=== PATIENT | male | born 1955 | race Caucasian/White ===

== ENCOUNTER 2023-10-08 13:42 | Inpatient (IN) | payer MEDICARE, OTHER, SELFPAY ==
[2023-10-08] VITALS (7 sets, daily range): BP systolic 128–169; BP diastolic 72–96; BMI 42.5
--- NOTE | 2023-10-08 07:15 | ED.GENMED ---
History of Present Illness
General
Chief Complaint: Flank Pain
Time Seen by Provider: 10/08/23 07:05
Travel History
Have you had any contact with someone who has COVID-19?: No
Do you have any symptoms of coronavirus? Fever > 100 degrees, chills, cough, shortness of breath, sore throat, loss of taste or smell, muscle aches, or headache?: No
History of Present Illness
History of Present Illness:
68-year-old male with history of morbid obesity, A-fib, hypertension, hyperlipidemia, coronary artery disease status post REED x 2 (placed at [facility] earlier this year) and chronic anticoagulant use presents to the emergency
department for evaluation of right flank pain beginning 2 hours prior to arrival. Feels comparable to prior kidney stones. Has required urologic intervention in the past for stones. Pain radiates toward the anterior abdomen associated with
nausea, no vomiting. Denies any hematuria or urinary discomfort. No history of intra-abdominal surgery. After his recent cardiac intervention he is currently on warfarin and Plavix.
Past History
Past History
ED Past Medical History: Arrthythmia (A. fib), HTN, Hypercholesterolemia, NIDDM, Psychiatric (Depression) and Other (Obstructive sleep apnea)
ED Past Surgical History: Cardiac (Cardiac ablation)
Social History
Tobacco: Non-smoker
Alcohol: Occasional
Drug: None
Personal:
Living: with family
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
Family History
Family History: Other (Noncontributory)
Review of Systems
Review of Systems
Allergies reviewed?: Yes
All Other Systems: ROS reviewed and negative except as documented in HPI and ROS
Phy Exam
Physical Exam
Physical Exam:
GEN: Appears uncomfortable, nontoxic
HEENT: Oral mucosa moist, no scleral icterus
Cardiac: Regular rate
Lung: No respiratory distress, no tachypnea
Abdomen: Morbid obesity limits exam, no CVA tenderness bilaterally, no anterior abdominal tenderness, no rigidity
MSK: No gross deformity or injuries
Skin: Good color, no pallor or jaundice, no rashes
Neuro: AO x3, moves all extremities freely
Psych: Calm, cooperative
Course
Orders/Labs/Results
Orders:
Orders
10/08/23 07:14
0.9% Sodium Chloride 1000 ml [Nss] 1,000 ml IV BOLUS
HYDROmorphone [Dilaudid] 0.5 mg IV NOW STA
Ondansetron Injectable [Zofran] 4 mg IV NOW STA
10/08/23 07:15
CT Abd/pel Without Iv Or Oral Urgent
Comment: no prior abd surgery
Reason For Exam: R flank pain
10/08/23 07:32
Basic Metabolic Panel Urgent
Complete Blood Count/With Diff Urgent
Prothrombin Time Urgent
10/08/23 08:54
HYDROmorphone [Dilaudid] 0.5 mg IV NOW STA
Ketorolac [Toradol] 15 mg IV NOW STA
10/08/23 09:10
Urinalysis Reflex To Culture Urgent
Date Specimen was Collected: 10/08/23
Time Specimen was Collected: 09:09
Urine Microscopic Reflex Cult Urgent
Urine Culture Urgent
LEVON Source: U
Specimen Description:
Date Specimen was Collected: 10/08/23
Time Specimen was Collected: 09:09
10/08/23 13:20
Admit/Transfer Patient As Directed
Co-Sign Provider:
Level of Care: Inpatient admission
Assign to:: Telemetry
Physician / Group: [email or web address]/medicine
Transfer to: Telemetry
Diagnosis: Nephrolithiasis, hydronephrosis
Reason for Telemetry: Arrhythmia
Date to Stop Telemetry: 10/11/23
Time to Stop Telemetry: 11:00
Reason for Hospitalization: Nephrolithiasis, hydronephrosis
Expected length of stay greater than two midnights?: Yes
ELOS- Estimated Length of Stay in days: 3
I certify the patient meets the requirements for IP care: Yes
Strain Urine As Directed
If stone obtained- send for analysis: Yes
Comment: notify MD if stone is recovered
10/08/23 13:25
Code Status As Directed
Resuscitation Status: Full Code
10/09/23 13:18
Tamsulosin [Flomax] 0.4 mg PO DAILY
10/11/23 11:00
DC Protocol for Telemetry ONCE
Abnormal Lab Results
10/08/23 10/08/23
07:32 09:10
RBC 4.66 L 10^6/uL
(4.70-6.10)
MCH 31.1 H pg
(27.0-31.0)
MPV 10.9 H fL
(7.4-10.4)
Absolute Neuts (auto) 7.0 H 10^3/uL
(1.4-6.5)
Absolute Lymphs (auto) 1.0 L 10^3/uL
(1.2-3.4)
Neutrophils % 80.7 H %
(42.2-75.2)
Lymphocytes % 11.5 L %
(20.5-51.1)
PT 18.8 H Sec
(11.4-14.6)
Carbon Dioxide 19 L mmol/L
(22-30)
BUN 30 H mg/dl
(9-20)
Creatinine 1.4 H mg/dL
(0.7-1.3)
Glucose 249 H mg/dl
(70-99)
Urine Ketones 2+ A
(Negative)
Ur Occult Blood Reflex 4+ A
(Negative)
Urine RBC 70-80 A /HPF
(0-2)
Urine Bacteria (Reflex) Moderate A
(Negative)
Urine Glucose 3+ A
(Negative)
Urine Albumin (Reflex) 1+ A
(Neg - Trace)
10/08/23 07:32
10/08/23 07:32
Vital Signs
Initial and Last Documented VS:
Initial Vital Signs
Pulse Resp BP Pulse Ox
70 16 140/96 98
10/08/23 06:59 10/08/23 06:59 10/08/23 06:59 10/08/23 06:59
Last Documented Vital Signs
Temp Pulse Resp BP Pulse Ox
98.6 F 57 16 128/80 94
10/08/23 08:38 10/08/23 11:46 10/08/23 11:46 10/08/23 11:46 10/08/23 11:46
MDM/Problems Addressed
MDM/Problems Addressed:
60-year-old male presents with right flank pain. He is found to have a 3 to 4 mm distal right ureteral stone. Given that he is anticoagulated and on antiplatelets chronically he is not suitable for discharge home on NSAIDs. Unfortunately NSAIDs
were the only medication emergency department provided sustained pain relief. Will admit to the hospitalist service for pain control, urology consulted for potential intervention if stone does not pass spontaneously
*Critical Care Note
Total Time (30-74mins, 75-104mins- exclusive of procedures): Not Applicable
ED Attending Note
-
Portions of this chart may have been created with voice recognition software.� Occasional wrong word or��sound alike� substitutions may have occurred due to the inherent limitations of voice recognition software.
Discharge Plan
Departure
Patient Disposition: Admit
Date of Disposition: 10/08/23
Time of Disposition: 09:56
Admit to: Med/Surg
Presentation/result/management discussed w/ accepting MD/DO: Hospitalist
Discharge Problem:
Hydronephrosis with urinary obstruction due to ureteral calculus
Interventions
Interventions:
*Risk Screen - Suicide Last Done: 10/08/23 09:28
*General Assessment Last Done: 10/08/23 09:27
*Neglect/Abuse Screening Last Done: 10/08/23 09:27
ED- Fall Risk Assessment Last Done: 10/08/23 09:28
*ED COVID-19 Vaccine History Last Done: 10/08/23 09:27
BR-Bbyzll-Wvxgckojcd Assessment Last Done: 10/08/23 09:00
ED-Male Genitourinary Assessment Last Done: 10/08/23 09:00
[2023-10-08] MEDS: ZOFRAN 4 MG IV (07:44)
[2023-10-08] MEDS: NSS 1000 IV (07:44)
[2023-10-08] MEDS: DILAUDID 0.5 MG IV ×4 (07:45→17:31)
[2023-10-08 07:57] LABS: % Basophils 0.2 % (0-2); % Eosinophils 0.6 % (0-6); % Immature Granulocytes 0.2 % (0-0.5); % Lymphocytes 11.5 % (20.5-51.1); % Monocytes 6.8 % (1.7-9.3); % Neutrophils 80.7 % (42.2-75.2); Absolute Eosinophils 0.1 10^3/uL (0-0.7); Absolute Monocytes 0.6 10^3/uL (0.1-0.6); Hematocrit 41.4 % (39.0-52.0); Hemoglobin 14.5 g/dL (13.0-18.0); Mean Corpuscular Hgb 31.1 pg (27.0-31.0); Mean Corpuscular Volume 88.8 fL (80.0-94.0); Mean Platelet Volume 10.9 fL (7.4-10.4); Nucleated Red Blood Cells % 0 % (-); Platelet Count 143 10^3/uL (130-400); Red Blood Cell Count 4.66 10^6/uL (4.70-6.10); Red Cell Dist. Width 13.1 % (11.5-14.5); White Blood Cell Count 8.6 10^3/uL (4.8-10.8)
[2023-10-08 08:07] LABS: INR 1.59; PT 18.8 Sec (11.4-14.6)
[2023-10-08 08:17] LABS: Blood Urea Nitrogen 30 mg/dl (9-20); Calcium 9.7 mg/dl (8.4-10.2); Carbon Dioxide 19 mmol/L (22-30); Chloride 106 mmol/L (98-107); Estimated Creatinine Clearance 76 ml/min; Glucose 249 mg/dl (70-99); Sodium 136 mmol/L (135-145); eGFR 54.75
[2023-10-08] MEDS: TORADOL 15 MG IV (09:20)
[2023-10-08 09:29] LABS: Urine Albumin 1+ (Neg - Trace); Urine Bilirubin Negative (Negative); Urine Character Slightly Cloudy (Clear); Urine Color Amber; Urine Glucose 3+ (Negative); Urine Ketone 2+ (Negative); Urine Leukocyte Negative (Negative); Urine Nitrite Negative (Negative); Urine Occult Blood 4+ (Negative); Urine Specific Gravity 1.015 (<1.030); Urine Urobilinogen Negative (Neg - 1+)
[2023-10-08 09:36] LABS: Urine Bacteria Moderate (Negative); Urine Red Blood Cell 70-80 /HPF (0-2)
--- NOTE | 2023-10-08 13:10 | W.PN.URO.CBU ---
Today's Communication / Plan
-
Trial of stone passage
OK to eat
OR 10/10/23 if stone does not pass
Discussed with Hospitalist
Assessment / Plan
-
Right renal colic
3 mm partially obstructing right UVJ stone
---
Will be admitted to Hospitalist service
Trial of stone passage
Antiplatelet medications to be held
Diagnosis
-
Date of Service: October 08, 2023
-
Patient Diagnosis:
CaOx and uric acid nephrolithiasis
History BPH s/p TURP and cystolithalopaxy 11/13
He is s/p left ureteroscopy with stone manipulation 05/15 and 06/15
---
He was awakened from sleep this AM with crushing right flank pain
CT scan reveals a 3 mm right UVJ stone with associated right hydroureteronephrosis. Non-obstructing left renal stones are present (images personally reviewed and results shared with patient and )
Subjective
-
c/o ongoing right CVAT
No right lower quadrant discomfort
Objective
-
Vital Signs
Temp Pulse Resp BP Pulse Ox
98.6 F 57 16 128/80 94
10/08/23 08:38 10/08/23 11:46 10/08/23 11:46 10/08/23 11:46 10/08/23 11:46
Laboratory Results
10/08/23 07:32
10/08/23 07:32
Review of Systems
-
Constitutional: No Symptoms
Respiratory: No Symptoms
Cardiac: No Symptoms
Abdomen/GI: Abdominal Pain
: Bleeding
Neurological: No Symptoms
Physical Exam
-
General -well nourished, no acute distress
Abdomen - soft, non-tender in SP region, right CVAT
Genitalia - normal
Skin - warm & dry with no rash
Neuro - AOx3, no motor deficits
--- NOTE | 2023-10-08 15:26 | HPS.HSE ---
Addendum entered and electronically signed by Archie Martinez MD 10/08/23 16:23:
Patient states may not be on Plavix any longer due to cost, requested family to bring in medication list updated reconciliation
Original Note:
Family Physician
-
Family Physician: Vince Mahmood
Chief Complaint
-
Right flank pain
History of Present Illness
68-year-old male with history of morbid obesity, A-fib on coumadin, hypertension, hyperlipidemia, VIC, coronary artery disease status post REED x 2 on DAPT(placed at [facility] earlier this year) now presents for right flank pain that
began 2 hours prior to hospital arrival. Has a history of prior kidney stones and symptoms are similar to those events. Patient describes pain is radiating down to the anterior abdomen. Pain is associated with nausea and vomiting, no hematuria
noted.
Medical History
Past Medical History
Past Medical History: Reports Other
Additional Past Medical History:
ASCVD
Hypertension
DM-II
Non-Sustained VT
SSS / Symptomatic Bradycardia
Atrial Fibrillation
Obesity
VIC
Nephrolithiasis
BPH
Anxiety / Depression
Past Surgical History: Reports Other
Additional Past Surgical History:
PTCA wth Stent (January 2022)
PPM Placement
TURP / Bladder Stone Removal
Social History
Tobacco: Non-smoker
Alcohol: Occasional
Drug: None
Family History
Family History: Not pertinent
Allergies / Home Medications
Allergies reflects when Allergies were last updated in [employer].
Home Medications with original date entered in [employer]
Allergy/Medication List:
Allergies
Allergy/AdvReac Type Severity Reaction Status Date / Time
No Known Allergies Allergy Verified 10/08/23 07:01
Home Medications
B-complex with vitamin C 1 cap PO HS Supplement 02/26/21
amlodipine 10 mg tablet 10 mg PO QPM Blood pressure 02/26/21
atorvastatin 80 mg tablet 80 mg PO DAILY High cholesterol 02/26/21
magnesium oxide 500 mg PO QPM Electrolyte Repletion 02/26/21
metoprolol succinate 25 mg tablet,extended release 24 hr 25 mg PO DAILY Heart disease/condition 02/26/21
paroxetine HCl 20 mg tablet 20 mg PO DAILY Mental Health/Anxiety 02/26/21
vitamin E (dl, acetate) 180 mg (400 unit) capsule 400 units PO DAILY Supplement 02/26/21
lisinopril 40 mg tablet 40 mg PO DAILY Blood Pressure 09/23/22
metformin 500 mg tablet 500 mg PO BID Diabetes 05/13/23
warfarin 2.5 mg tablet (Jantoven) 7.5 mg PO MOWEFR@0800 atrial fibrillation/stroke prevention 05/13/23
warfarin 5 mg tablet (Jantoven) 5 mg PO DAILY atrial fibrillation/stroke prevention 05/13/23
Fish Oil 400 mg PO QPM 10/08/23
aspirin 81 mg tablet,delayed release 81 mg PO DAILY 10/08/23
cholecalciferol (vitamin D3) 25 mcg (1,000 unit) tablet 25 mcg PO DAILY 10/08/23
clopidogrel 75 mg tablet 75 mg PO DAILY 10/08/23
glucosamine sulfate 500 mg tablet (Glucosamine) 1,500 mg PO DAILY 10/08/23
therapeutic multivitamin 1 tab PO QPM 10/08/23
Review of Systems
-
History Source: Patient
A 12 point ROS was completed and negative except as noted: Yes
Physical Exam
Vital Signs
Vital Signs
Temp Pulse Resp BP Pulse Ox
97.4 F 64 18 159/75 98
10/08/23 15:18 10/08/23 15:18 10/08/23 15:18 10/08/23 15:18 10/08/23 15:18
Physical Exam
General: Well Developed, Well Nourished and No Apparent Distress
HEENT: NormoCephalic
Respiratory: Clear
Cardiac: S1/S2
GI: Non Tender and Other (Obese, Positive BS)
Musculoskeletal: No Clubbing
Skin: Warm, Dry and Rash
Neuro: Awake, Alert, Oriented and AO x 3
Hematologic/Lymphatic: No Lymphadenopathy
Psych: Calm
Laboratory Results
-
10/08/23 07:32
10/08/23 07:32
Laboratory Results
PT 18.8 Sec (11.4-14.6) H 10/08/23 07:32
INR 1.59 10/08/23 07:32
Total Bilirubin Cancelled 10/08/23 07:32
AST Cancelled 10/08/23 07:32
ALT Cancelled 10/08/23 07:32
Alkaline Phosphatase Cancelled 10/08/23 07:32
Data Reviewed
-
CT Scan: Image Personally Visualized and interpreted and Report Reviewed by me
Lab Data: Labs Reviewed by me
Impression/Plan
-
IMPRESSION:
Patient is a 68y M with PMH significant for ASCVD, A-Fib on Coumadin, DM-II and history of kidney stones who presents to ED complaining of R flank pain found to have right ureteral stone, hydronephrosis
PLAN:
#Right renal colic
#3 Millimeter partially obstructing right UVJ stone
#Moderate right hydronephrosis
�- IVFs, pain control, tamsulosin, supportive care.
�- Urology consulted.
�- Tentatively for OR on monday 10/09 if no passage of stone
�- Strain urine overnight.
�- Empiric abx coverage for now with ceftriaxone. Follow up Cultures
�- IVF
�- Avoid further NSAIDs acutely.� Hold lisinopril for now.
# RAGHAV
� Secondary to stated above stone, hydronephrosis
� Monitor with resuscitation, fluids
� Hold nephrotoxic agents including NSAIDs, ALYSSA inhibitor
#ASCVD
�- Stable.� No chest pain, dyspnea, etc.
�- Can Cont DAPT, cleared by Urology
�- Continue other CV meds including beta-checo, statin, etc.
#Permanent Atrial Fibrillation
#SSS s/p PPM
�- Stable.� Paced rhythm on EKG.
�- Holding Coumadin for possible intervention.
�- No need for reversal agent at this time
#DM-II
�- Stable.� Hold metformin acutely.
�- Follow glucose and cover with SSI as needed.
#Benign Hypertension
�- Stable.� Holding lisinopril given RAGHAV as noted above.
�- Continue other antihypertensive agents with holding parameters.
#VIC
�- Stable.� Continue nightly CPAP.
#Anxiety / Depression
�- Stable.� Continue paroxetine.
#Obesity due to excess calories and insulin resistance
�- Affects all aspects of care.
�- Encourage healthy diet and increased activity with goal of weight loss.
#DVT Prophylaxis:� HSQ
Code Status:� Full
[2023-10-08 15:59] LABS: Glucose - Point of Care 154 mg/dl (70-99)
[2023-10-08] MEDS: LR 1000 IV (16:04)
[2023-10-08] MEDS: ASPIR LOW (ENTERIC COATED) 81 MG PO (16:08)
[2023-10-08] MEDS: PLAVIX 75 MG PO (16:08)
[2023-10-08] MEDS: TOPROL XL 25 MG PO (16:08)
[2023-10-08] MEDS: HEPARIN 5000 UNITS SC ×2 (16:08→22:51)
[2023-10-08] MEDS: NORVASC 10 MG PO (16:08)
[2023-10-08] MEDS: ROCEPHIN 1000 MG IV (16:10)
[2023-10-08] MEDS: STERILE WATER FOR INJECTION 10 ML IV (16:10)
[2023-10-08] MEDS: MAGNESIUM OXIDE 500 MG PO (16:11)
[2023-10-08] MEDS: FLUSH (NSS) 1 FLUSH IV ×2 (16:11→16:17)
[2023-10-08] MEDS: NOVOLOG FLEXPEN-LOW RESISTANCE 1 UNITS SC (17:02)
[2023-10-08] MEDS: TYLENOL 650 MG PO (19:55)
[2023-10-08 21:27] LABS: Glucose - Point of Care 228 mg/dl (70-99)
[2023-10-08] MEDS: DILAUDID 1 MG IV (22:50)
[2023-10-09 02:30] VITALS: BMI 42.5
[2023-10-09 02:46] VITALS: BP 126/77
[2023-10-09] MEDS: DILAUDID 1 MG IV (03:56)
[2023-10-09 04:06] VITALS: BMI 40.7
[2023-10-09 05:05] LABS: % Basophils 0.2 % (0-2); % Eosinophils 0.1 % (0-6); % Immature Granulocytes 0.4 % (0-0.5); % Lymphocytes 6.6 % (20.5-51.1); % Monocytes 7.2 % (1.7-9.3); % Neutrophils 85.5 % (42.2-75.2); Absolute Immature Granulocytes 0.1 10^3/uL (0-0.05); Absolute Lymphocytes 0.9 10^3/uL (1.2-3.4); Absolute Monocytes 0.9 10^3/uL (0.1-0.6); Absolute Neutrophils 11.2 10^3/uL (1.4-6.5); Hematocrit 37.5 % (39.0-52.0); Hemoglobin 12.8 g/dL (13.0-18.0); Mean Corp Hgb Conc. 34.1 g/dL (33.0-37.0); Mean Corpuscular Hgb 31.1 pg (27.0-31.0); Mean Corpuscular Volume 91.2 fL (80.0-94.0); Nucleated Red Blood Cells % 0 % (-); Platelet Count 156 10^3/uL (130-400); Red Blood Cell Count 4.11 10^6/uL (4.70-6.10); Red Cell Dist. Width 13.2 % (11.5-14.5); White Blood Cell Count 13.1 10^3/uL (4.8-10.8)
[2023-10-09 05:17] LABS: INR 1.41
[2023-10-09] MEDS: LR 1000 IV (05:18)
[2023-10-09 05:35] LABS: ALT (SGPT) 27 U/L (0-50); AST (SGOT) 23 U/L (17-59); Albumin 4.1 g/dl (3.5-5.0); Alkaline Phosphatase 101 U/L (38-126); Blood Urea Nitrogen 33 mg/dl (9-20); Calcium 9.2 mg/dl (8.4-10.2); Carbon Dioxide 26 mmol/L (22-30); Chloride 100 mmol/L (98-107); Estimated Creatinine Clearance 52 ml/min; Glucose 233 mg/dl (70-99); Potassium 4.7 mmol/L (3.5-5.1); Sodium 137 mmol/L (135-145); Total Bilirubin 0.8 mg/dl (0.2-1.3); Total Protein 6.8 g/dl (6.3-8.2); eGFR 35.68
[2023-10-09] MEDS: PLAVIX 75 MG PO (07:53)
[2023-10-09] MEDS: LIPITOR 80 MG PO (07:53)
[2023-10-09] MEDS: ASPIR LOW (ENTERIC COATED) 81 MG PO (07:53)
[2023-10-09] MEDS: PAXIL 20 MG PO (07:53)
[2023-10-09] MEDS: TOPROL XL 25 MG PO (07:53)
[2023-10-09 07:58] LABS: Glucose - Point of Care 180 mg/dl (70-99)
[2023-10-09] MEDS: NOVOLOG FLEXPEN-LOW RESISTANCE 1 UNITS SC ×3 (07:58→16:36)
[2023-10-09] MEDS: HEPARIN 5000 UNITS SC ×2 (07:59→16:22)
[2023-10-09 08:06] VITALS: BP 142/76
--- NOTE | 2023-10-09 08:45 | W.PN.HOSP.TC ---
Today's Communication/Plan
-
continue abx
possible d/c today if no abd pain
Assessment / Plan
Assessment / Plan
#Right renal colic
#4 Millimeter partially obstructing right UVJ stone
#Moderate right hydronephrosis
- Pain is better today, no stone in strainer.
�- IVFs, pain control, tamsulosin, supportive care.
�- Tentatively for OR on monday 10/09 - as patient pain improved at this point, await urology input - repeat CT or US per urology recommendation
�- Continue rocephin, f/u urine culture
# RAGHAV
� Secondary to stated above stone, hydronephrosis
� Renal function worsening
� Hold nephrotoxic agents including NSAIDs, ALYSSA inhibitor
#ASCVD
�- Stable.� No chest pain, dyspnea, etc.
�- Can Cont DAPT, cleared by Urology
�- Continue other CV meds including beta-checo, statin, etc.
#Permanent Atrial Fibrillation
#SSS s/p PPM
�- Stable.� Paced rhythm on EKG.
�- No need for reversal agent at this time
- Resume warfarin back today if no surgery.
#DM-II
�- Stable.� Hold metformin acutely.
�- Follow glucose and cover with SSI as needed.
#Benign Hypertension
�- Stable.� Holding lisinopril given RAGHAV as noted above.
�- Continue other antihypertensive agents with holding parameters.
#VIC
�- Stable.� Continue nightly CPAP.
#Anxiety / Depression
�- Stable.� Continue paroxetine.
#Obesity due to excess calories and insulin resistance
�- Affects all aspects of care.
�- Encourage healthy diet and increased activity with goal of weight loss.
#DVT Prophylaxis:� HSQ
Code Status:� Full
Care plan discussed with urology
Anticipated Discharge: Within 24 hours
Subjective/Interval History
-
Date of Service: October 09, 2023
patient subjectively feels better
passed blood clot, no visible stone in strainer
no fever/nausea/vomiting overnight
Objective Data
-
Labs:
Laboratory Results
10/09/23
04:31
WBC 13.1 H
Hgb 12.8 L
Hct 37.5 L
Plt Count 156
PT 17.0 H
INR 1.41
Sodium 137
Potassium 4.7
Chloride 100
Carbon Dioxide 26
BUN 33 H
Creatinine 2.0 H
Glucose 233 H
Calcium 9.2
Total Bilirubin 0.8
AST 23
ALT 27
Alkaline Phosphatase 101
Vital Signs:
Vital Signs
Temp Pulse Resp BP Pulse Ox
97.5 F 60 15 142/76 99
10/09/23 08:06 10/09/23 08:06 10/09/23 08:06 10/09/23 08:06 10/09/23 08:06
I&O
10/08/23 10/09/23 10/10/23
06:59 06:59 06:59
Intake Total 1240 / 1240
Balance 1240 / 1240
Review of Systems
-
Respiratory: Reports No Symptoms
Cardiac: Reports No Symptoms
Abdomen/GI: Reports Abdominal Pain; Denies Nausea or Vomiting
Physical Exam
-
General: Comfortable and Obese
HEENT: Negative Oxygen
Respiratory: Clear to Auscultation
Cardiac: Regular Rhythm and S1/S2; Negative Murmur or Rub
GI: Soft, Nontender and Nondistended
Musculoskeletal: No Edema
Neuro: Awake, Alert, Oriented, No Motor Deficits and Nonfocal/Grossly Intact
Psych: Calm
--- NOTE | 2023-10-09 09:34 | W.PN.URO.CBU ---
Today's Communication / Plan
-
Observe several more hours
Home if remains comfortable
BMP as outpatient later this week
Assessment / Plan
-
Right renal colic
3 mm partially obstructing right UVJ stone
---
Patient comfortable
Creatinine 2.0
Diagnosis
-
Date of Service: October 09, 2023
-
Patient Diagnosis:
CaOx and uric acid nephrolithiasis
History BPH s/p TURP and cystolithalopaxy 11/13
He is s/p left ureteroscopy with stone manipulation 05/15 and 06/15
---
He was awakened from sleep this AM with crushing right flank pain
CT scan reveals a 3 mm right UVJ stone with associated right hydroureteronephrosis. Non-obstructing left renal stones are present (images personally reviewed and results shared with patient and )
Subjective
-
Has had no pain since 4am
Objective
-
Vital Signs
Temp Pulse Resp BP Pulse Ox
97.5 F 60 15 142/76 99
10/09/23 08:06 10/09/23 08:06 10/09/23 08:06 10/09/23 08:06 10/09/23 08:06
Intake and Output
10/08/23 10/09/23 10/10/23
06:59 06:59 06:59
Intake Total 1240 / 1240
Balance 1240 / 1240
Intake:
Oral fluids 340 / 340
IV fluids (Total) 900 / 900
Other:
Number of approximated MODERATE 1
amounts of urine
Laboratory Results
10/09/23 04:31
10/09/23 04:31
Review of Systems
-
Constitutional: No Symptoms
Respiratory: No Symptoms
Cardiac: No Symptoms
Abdomen/GI: No Symptoms
: No Symptoms
Neurological: No Symptoms
Physical Exam
-
General - well developed, well nourished, no acute distress
Abdomen - soft, non-tender, no CVAT
Genitalia - normal
Skin - warm & dry with no rash
--- NOTE | 2023-10-09 09:45 | PTOTSP ---
Received order for PT and reviewed chart. Observed pt ambulating independently from bathroom pushing his own IV pole. Pt reports feeling better and has no concerns about going home. PT will sign off.
--- NOTE | 2023-10-09 09:46 | PTOTSP ---
pt up in room ad gosia. pt able to make needs known, follow direction without difficulty. no acute OT needs identified, will sign off.
--- NOTE | 2023-10-09 10:45 | CM ---
CM met with pt bedside
He resides with his spouse in a 1SH
Pt is independent with his ADLs
Only DME is a cpap
No hx with VN/SNF
PCP- Vince Mahmood
Rx- Lorie Argueta
Possible dc later today noted
No dc needs identified
Discharge Disposition- home, no needs- spouse transport
[2023-10-09 11:00] VITALS: BP 106/67
[2023-10-09 11:19] LABS: Glucose - Point of Care 171 mg/dl (70-99)
[2023-10-09] MEDS: FLOMAX 0.400000000000000022 MG PO (11:49)
[2023-10-09 15:12] VITALS: BP 129/73
[2023-10-09 15:49] LABS: Blood Urea Nitrogen 32 mg/dl (9-20); Calcium 9.5 mg/dl (8.4-10.2); Carbon Dioxide 26 mmol/L (22-30); Chloride 101 mmol/L (98-107); Estimated Creatinine Clearance 69 ml/min; Glucose 172 mg/dl (70-99); Potassium 4.4 mmol/L (3.5-5.1); Sodium 135 mmol/L (135-145)
[2023-10-09] MEDS: FLUSH (NSS) 1 FLUSH IV ×5 (16:20→17:05)
[2023-10-09] MEDS: ROCEPHIN 1000 MG IV (16:21)
[2023-10-09] MEDS: STERILE WATER FOR INJECTION 10 ML IV (16:22)
[2023-10-09 16:37] LABS: Glucose - Point of Care 172 mg/dl (70-99)
[2023-10-09] MEDS: MAGNESIUM OXIDE 500 MG PO (17:10)
[2023-10-09] MEDS: NORVASC 10 MG PO (17:13)
--- NOTE | 2023-10-10 16:46 | W.DCSUMMARY ---
Discharge Summary
Discharge Data
Date of Admission: 10/08/23
Date of Discharge: 10/09/23
-
Pending Results: No
Hospital Course
Discharging Physician : Dr Jose Navas
Disposition : home
Primary care physician : Dr Vince Mahmood
Principal Discharge diagnosis : Unknown
Obstructing right ureterovesical junction stone
Urinary tract infection
Chronic Discharge diagnosis :
Coronary artery disease
Permanent atrial fibrillation post pacemaker
dll-plmxhod-[id number] diabetes mellitus
essential hypertension
sleep apnea
anxiety/depression
obesity
Hospital Course :
Patient is a 68-year-old male with no mention past medical history came to ER for having new onset of right flank pain. Patient had some associated nausea without vomiting no reported fever. CT abdomen pelvis done in the ER showing a 4 mm
partially obstructing right UVJ stone and moderate right hydronephrosis. In light of smaller size urology recommended for patient to be managed expectantly with plan for patient to be taken to the OR if not improved. Patient pain significantly
resolved spontaneously with passage of stone. Urology recommended patient to follow-up in office for regular follow-up. Patient was started on IV antibiotics during this hospitalization and was provided course of oral antibiotics at discharge.
Urine culture remain negative.
Patient also had some renal dysfunction, was maintained on IV fluid. Follow-up prescription for repeat blood work within 1 week has been provided at discharge.
Important imaging findings :
None
Procedure findings :
None
Discharge Plan
-
Patient Disposition: Home (Routine Discharge)
Discharge Diagnosis/Procedures: Distal ureteral stone
Condition: Fair
Diet: Regular
Activity: As tolerated
Driving Restrictions: As prior to admission
Bathing Restrictions: OK to Shower
Referrals:
Vince Mahmood MD [Family Provider] - in one week
Miguel Friedman MD [Active] -
Prescriptions:
New
tamsulosin 0.4 mg Capsule
0.4 mg PO DAILY Qty: 30 0RF
cefdinir 300 mg capsule
300 mg PO BID 5 Days Qty: 10 0RF
tramadol 50 mg tablet
50 mg PO Q8H PRN (Reason: mod sev pain) Qty: 14 0RF
Continued
atorvastatin 80 MG tablet
80 mg PO DAILY
amlodipine 10 MG tablet
10 mg PO QPM
paroxetine HCl 20 MG tablet
20 mg PO DAILY
magnesium oxide 500 MG tablet
500 mg PO QPM
metoprolol succinate 25 MG tablet extended release 24 hr
25 mg PO DAILY
B-complex with vitamin C 1 CAPLET tablet
1 cap PO HS
vitamin E (dl, acetate) 400 UNITS capsule
400 units PO DAILY
lisinopril 40 mg Tablet
40 mg PO DAILY
metformin 500 mg Tablet
500 mg PO BID
warfarin [Jantoven] 2.5 mg Tablet
7.5 mg PO MOWEFR@0800
Rx Instructions:
10/08/2023, take with 5 mg on MoWeFr for a total of 7.5 mg.
warfarin [Jantoven] 5 mg Tablet
5 mg PO DAILY
clopidogrel 75 mg Tablet
75 mg PO DAILY
glucosamine sulfate [Glucosamine] 500 mg Tablet
1,500 mg PO DAILY
therapeutic multivitamin Tablet
1 tab PO QPM
aspirin 81 mg Tablet,Delayed Release (Dr/Ec)
81 mg PO DAILY
cholecalciferol (vitamin D3) 25 mcg (1,000 unit) Tablet
25 mcg PO DAILY
Fish Oil 400 mg
400 mg PO QPM
furosemide [Lasix] 20 mg Tablet
20 mg PO PRN PRN (Reason: >3LB weight gain in one day)
lorazepam 1 mg Tablet
1 mg PO PRN PRN (Reason: anxiety)
Discharge Orders:
Discharge Patient (As Directed); Ordered 10/09/23
Ordered By: Jose Navas
Discharge Date and Time
Discharge Date/Time: 10/09/23 17:44
== END 2023-10-09 17:44 | disposition home or self-care (01) | DRG 690 ==
LOC: 2 SOUTH 13:42
PROVIDERS: Physician Assistant; ADMITTING PHYSICIAN Internal Medicine; ATTENDING PHYSICIAN Hospitalist; EMERGENCY PHYSICIAN Emergency Medicine; FAMILY PHYSICIAN Family Medicine; OTHER PHYSICIAN Specialist
DX: N13.6 Pyonephrosis (principal); Z68.41 Body mass index [BMI] 40.0-44.9, adult; I48.21 Permanent atrial fibrillation; I25.10 Atherosclerotic heart disease of native coronary artery without angina pectoris; E78.00 Pure hypercholesterolemia, unspecified; E66.01 Morbid (severe) obesity due to excess calories; I10 Essential (primary) hypertension; E11.9 Type 2 diabetes mellitus without complications; F32.A Depression, unspecified; F41.9 Anxiety disorder, unspecified; G47.33 Obstructive sleep apnea (adult) (pediatric); Z95.5 Presence of coronary angioplasty implant and graft; Z79.01 Long term (current) use of anticoagulants; Z79.84 Long term (current) use of oral hypoglycemic drugs
CPT/HCPCS: 74176; 80048; 80053; 81003; 81015; 82962; 85025; 85610; 87086; 96361; 96374; 96375; 96376; 99285

== ENCOUNTER → 2023-11-28 13:59 | Outpatient (REF) | payer MEDICARE, OTHER, SELFPAY | LOC: RAD 13:59 | PROVIDERS: ATTENDING PHYSICIAN Urology; FAMILY PHYSICIAN Family Medicine | DX: N20.0 Calculus of kidney (principal) | CPT/HCPCS: 76775 ==

== ENCOUNTER → 2024-06-24 06:37 | Outpatient (REF) | payer MEDICARE, OTHER, SELFPAY | LOC: RAD 06:37 | PROVIDERS: ATTENDING PHYSICIAN Urology; FAMILY PHYSICIAN Family Medicine | DX: N20.0 Calculus of kidney (principal) | CPT/HCPCS: 76775 ==